=== PATIENT | male | born 1990 | race Hispanic/Latino ===

== ENCOUNTER 2017-12-02 15:06 | Emergency (ER) | payer SELFPAY ==
[2017-12-02] MEDS ORDERED: hydrOXYzine 25 MG TAB ONE (16:44)
== END 2017-12-02 17:09 | disposition home or self-care (01) ==
LOC: ERS 15:06
DX: F41.9 Anxiety disorder, unspecified (principal); F17.210 Nicotine dependence, cigarettes, uncomplicated
CPT/HCPCS: 99283

== ENCOUNTER 2018-08-21 06:48 | Emergency (ER) | payer SELFPAY | END 2018-08-21 07:18 | disposition home or self-care (01) | LOC: ERS 06:48 | DX: F41.1 Generalized anxiety disorder (principal); F17.210 Nicotine dependence, cigarettes, uncomplicated; Z79.899 Other long term (current) drug therapy | CPT/HCPCS: 99283 ==

== ENCOUNTER 2018-11-17 01:22 | Emergency (ER) | payer SELFPAY ==
[2018-11-17] MEDS ORDERED: Lidocaine 1% w/Epinephrine 1:100K 20 ML VIAL ONE (01:30)
[2018-11-17] MEDS ORDERED: CEFAZOLIN 1 GM VIAL ONE (01:30)
[2018-11-17] MEDS ORDERED: Adacel (T-DAP) 0.5 ML SYRINGE ONE (01:31)
[2018-11-17 01:39] LABS: #Basophils 0.1 thou/uL (0.0-0.2); #Eosinphils 0.1 thou/uL (0.0-0.7); #Lymphocytes 4.8 thou/uL (1.20-3.40); #Monocytes 0.6 thou/uL (0.11-0.59); #Neutrophils 5.7 thou/uL (1.40-6.50); %Basophils 1.2 % (0.0-1.0); %Eosinophils 1.2 % (0.0-10.0); %Lymphocytes 42.3 % (21.0-51.0); %Monocytes 5.2 % (0.0-10.0); %Neutrophils 50.2 % (42.0-75.0); Hemoglobin 16.1 g/dL (14.0-18.0); Mean Corpuscular HGB CONC 36.3 g/dL (32.0-36.0); Mean Corpuscular Hemoglobin 33.7 pg (27.0-31.0); Mean Corpuscular Volume 92.9 fL (78.0-98.0); Mean Platelet Volume 6.6 fL (7.4-10.4); Platelet Count 375 thou/uL (130-400); RBC Distribution Width 11.1 % (11.5-14.5); Red Blood Cell (RBC) Count 4.78 mill/uL (4.70-6.10); White Blood Cell (WBC) Count 11.4 thou/uL (4.8-10.8)
[2018-11-17 01:58] LABS: ALT (SGPT) 51 U/L (8-55); AST (SGOT) 33 U/L (5-34); Albumin 4.9 g/dL (3.5-5.0); Alkaline Phosphatase 109 U/L (40-150); Anion Gap 20 mmol/L (10-20); BUN (Urea Nitrogen) 11 mg/dL (8.9-20.6); Bilirubin, Total 0.7 mg/dL (0.2-1.2); Calc. Creatinine Clearance 0 mL/min (70-130); Calcium 9.9 mg/dL (7.8-10.44); Carbon Dioxide 16 mmol/L (22-29); Chloride 106 mmol/L (98-107); Estimated GFR-MDRD Greater than 90; Globulin 3.9 g/dL (2.4-3.5); Glucose 103 mg/dL (70-105); Potassium 3.8 mmol/L (3.5-5.1); Protein, Total 8.8 g/dL (6.0-8.3); Sodium 138 mmol/L (136-145)
--- NOTE | 2018-11-17 07:40 | RAD ---
Left forearm 2 views HISTORY: Left arm injury. FINDINGS: Radius and ulna are intact. Soft tissue gas of the distal forearm consistent with laceratio n. No acute fracture, dislocation, or radiopaque foreign bodies are apparent.
--- NOTE | 2018-11-17 07:41 | RAD ---
Left hand 3 views HISTORY: Left hand injury. FINDINGS: Joint spaces are preserved. Ulnar negative variant. No acute fracture, dislocation, or radi opaque foreign bodies are apparent. IMPRESSION: No acute osseous abnormalities are demonstrated.
== END 2018-11-17 02:33 | disposition home or self-care (01) ==
LOC: ERS 01:22
DX: S61.215A Laceration without foreign body of left ring finger without damage to nail, initial encounter (principal); S61.217A Laceration without foreign body of left little finger without damage to nail, initial encounter; S56.222A Laceration of other flexor muscle, fascia and tendon at forearm level, left arm, initial encounter; F41.9 Anxiety disorder, unspecified; F17.210 Nicotine dependence, cigarettes, uncomplicated; Z79.899 Other long term (current) drug therapy; Z71.6 Tobacco abuse counseling; W25.XXXA Contact with sharp glass, initial encounter
CPT/HCPCS: 12004; 80053; 85025; 90471; 90715; 96365; 99406; J0690; J2001

== ENCOUNTER 2019-01-29 06:07 | Emergency (ER) | payer SELFPAY ==
[2019-01-29] MEDS ORDERED: Bacitracin 1 PK ONE (06:35)
== END 2019-01-29 06:45 | disposition home or self-care (01) ==
LOC: ERS 06:07
DX: S61.012A Laceration without foreign body of left thumb without damage to nail, initial encounter (principal); F41.9 Anxiety disorder, unspecified; F17.210 Nicotine dependence, cigarettes, uncomplicated; W26.8XXA Contact with other sharp object(s), not elsewhere classified, initial encounter
CPT/HCPCS: 12001

== ENCOUNTER 2019-04-10 13:47 | Emergency (ER) | payer SELFPAY ==
[2019-04-10 14:28] LABS: #Basophils 0.1 thou/uL (0.0-0.2); #Eosinphils 0.2 thou/uL (0.0-0.7); #Lymphocytes 3.7 thou/uL (1.20-3.40); #Monocytes 0.5 thou/uL (0.11-0.59); #Neutrophils 4.2 thou/uL (1.40-6.50); %Basophils 1.2 % (0.0-1.0); %Eosinophils 1.9 % (0.0-10.0); %Lymphocytes 42.8 % (21.0-51.0); %Monocytes 5.8 % (0.0-10.0); %Neutrophils 48.4 % (42.0-75.0); Hemoglobin 17.4 g/dL (14.0-18.0); Mean Corpuscular HGB CONC 37.6 g/dL (32.0-36.0); Mean Corpuscular Hemoglobin 33.9 pg (27.0-31.0); Mean Corpuscular Volume 90.2 fL (78.0-98.0); Mean Platelet Volume 6.7 fL (7.4-10.4); Platelet Count 335 thou/uL (130-400); RBC Distribution Width 11.2 % (11.5-14.5); Red Blood Cell (RBC) Count 5.13 mill/uL (4.70-6.10); White Blood Cell (WBC) Count 8.6 thou/uL (4.8-10.8)
--- NOTE | 2019-04-10 14:32 | RAD ---
CHEST 1 VIEW: Date: 04/10/19 HISTORY: Dizziness. Diaphoretic. Shortness of breath. Chest pressure. COMPARISON: 02/05/09. FINDINGS: Heart size is within normal limits. Lungs are clear. IMPRESSION: No significant acute intrathoracic disease. POS: [facility]
[2019-04-10 14:45] LABS: ALT (SGPT) 51 U/L (8-55); AST (SGOT) 29 U/L (5-34); Alkaline Phosphatase 113 U/L (40-110); Anion Gap 15 mmol/L (10-20); BUN (Urea Nitrogen) 11 mg/dL (8.9-20.6); Bilirubin, Total 1.3 mg/dL (0.2-1.2); Calc. Creatinine Clearance 0 mL/min (70-130); Calcium 10.7 mg/dL (7.8-10.44); Carbon Dioxide 22 mmol/L (22-29); Chloride 103 mmol/L (98-107); Estimated GFR-MDRD 90; Globulin 4.1 g/dL (2.4-3.5); Glucose 95 mg/dL (70-105); Lipase 28 U/L (8-78); Protein, Total 9.1 g/dL (6.0-8.3); Sodium 136 mmol/L (136-145)
[2019-04-10] MEDS ORDERED: hydrOXYzine 25 MG TAB ONE (15:41)
[2019-04-10] MEDS ORDERED: Acetaminophen 500 MG TAB ONE (15:41)
[2019-04-10] MEDS ORDERED: Ibuprofen 800 MG TAB ONE (17:36)
== END 2019-04-10 17:44 | disposition home or self-care (01) ==
LOC: ERS 13:47
DX: I10 Essential (primary) hypertension (principal); F41.9 Anxiety disorder, unspecified; F17.210 Nicotine dependence, cigarettes, uncomplicated; Z91.19 Patient's noncompliance with other medical treatment and regimen
CPT/HCPCS: 36415; 71045; 80053; 83690; 84484; 85025; 93005

== ENCOUNTER 2019-05-12 10:16 | Emergency (ER) | payer SELFPAY ==
[2019-05-12] MEDS ORDERED: Ketorolac Tromethamine 30 MG/ML VIAL ONE (10:58)
[2019-05-12] MEDS ORDERED: Acetaminophen 500 MG TAB ONE (10:58)
== END 2019-05-12 11:15 | disposition home or self-care (01) ==
LOC: ERS 10:16
DX: K05.10 Chronic gingivitis, plaque induced (principal); K02.9 Dental caries, unspecified; I10 Essential (primary) hypertension; F41.9 Anxiety disorder, unspecified; F17.210 Nicotine dependence, cigarettes, uncomplicated; Z79.899 Other long term (current) drug therapy
CPT/HCPCS: 96372; 99282; J1885

== ENCOUNTER 2021-03-19 15:21 | Emergency (ER) | payer SELFPAY ==
[2021-03-19] MEDS ORDERED: Dexamethasone 4 mg/ml Vial ONE (16:32)
== END 2021-03-19 16:40 | disposition home or self-care (01) ==
LOC: ERS 15:21
DX: L25.9 Unspecified contact dermatitis, unspecified cause (principal); I10 Essential (primary) hypertension; Z79.899 Other long term (current) drug therapy
CPT/HCPCS: 99282; J1100

== ENCOUNTER 2022-10-12 15:54 | Emergency (ER) | payer SELFPAY ==
[2022-10-12] MEDS ORDERED: Ketorolac Tromethamine 30 MG/ML VIAL ONE (17:48)
== END 2022-10-12 17:55 | disposition home or self-care (01) ==
LOC: ERS 15:54
DX: M79.671 Pain in right foot (principal)
CPT/HCPCS: J1885

== ENCOUNTER 2023-04-15 20:50 | Emergency (ER) | payer SELFPAY ==
[2023-04-15] MEDS ORDERED: Ketorolac Tromethamine 30 MG/ML VIAL ONE (21:32)
[2023-04-15] MEDS ORDERED: Lidocaine 1% PF 5 ML VIAL ONE (21:38)
== END 2023-04-15 22:50 | disposition home or self-care (01) ==
LOC: ERS 20:50
DX: K08.89 Other specified disorders of teeth and supporting structures (principal); I10 Essential (primary) hypertension; F17.210 Nicotine dependence, cigarettes, uncomplicated; Z79.899 Other long term (current) drug therapy
CPT/HCPCS: 64450; 96372; J1885

== ENCOUNTER 2023-07-16 17:44 | Emergency (ER) | payer SELFPAY ==
[2023-07-16 20:06] LABS: #Basophils 0.1 thou/uL (0.0-0.2); #Eosinphils 0.1 thou/uL (0.0-0.7); #Monocytes 0.8 thou/uL (0.11-0.59); #Neutrophils 8.6 thou/uL (1.40-6.50); %Basophils 0.6 % (0.0-1.0); %Eosinophils 0.4 % (0.0-10.0); %Lymphocytes 17.6 % (21.0-51.0); %Neutrophils 74.1 % (42.0-75.0); Hematocrit 42.8 % (42.0-52.0); Hemoglobin 15.4 g/dL (14.0-18.0); Mean Corpuscular Volume 91.6 fl (78.0-98.0); Mean Platelet Volume 8.8 fL (7.4-10.4); Platelet Count 302 10x3/uL (130-400); RBC Distribution Width 11.9 % (11.5-14.5); Red Blood Cell (RBC) Count 4.67 mill/uL (4.70-6.10); White Blood Cell (WBC) Count 11.6 10x3/uL (4.8-10.8)
[2023-07-16 20:29] LABS: Albumin 4.7 g/dL (3.5-5.0)
[2023-07-16 20:30] LABS: Chloride 101 mmol/L (98-107); Potassium 3.2 mmol/L (3.5-5.1); Sodium 135 mmol/L (136-145)
[2023-07-16 20:31] LABS: Calcium 9.3 mg/dL (7.8-10.44)
[2023-07-16 20:32] LABS: Globulin 3.5 g/dL (2.4-3.5); Glucose 87 mg/dL (70-105); Protein, Total 8.2 g/dL (6.0-8.3)
[2023-07-16 20:33] LABS: Anion Gap 14 mmol/L (10-20); Carbon Dioxide 23 mmol/L (22-29)
[2023-07-16 20:34] LABS: Bilirubin, Total 1.3 mg/dL (0.2-1.2)
[2023-07-16 20:35] LABS: Alkaline Phosphatase 94 U/L (40-110); Calc. Creatinine Clearance 0 mL/min (70-130); Estimated GFR 119
[2023-07-16 20:36] LABS: BUN (Urea Nitrogen) 11 mg/dL (8.9-20.6)
[2023-07-16 20:37] LABS: AST (SGOT) 17 U/L (5-34)
[2023-07-16 20:38] LABS: ALT (SGPT) 18 U/L (8-55)
== END 2023-07-16 20:54 | disposition home or self-care (01) ==
LOC: ERS 17:44
DX: R29.0 Tetany (principal); I10 Essential (primary) hypertension; F17.210 Nicotine dependence, cigarettes, uncomplicated; F17.290 Nicotine dependence, other tobacco product, uncomplicated
CPT/HCPCS: 36415; 80053; 85025; 99284

== ENCOUNTER 2023-08-18 14:30 | Emergency (ER) | payer SELFPAY ==
[2023-08-18 15:26] LABS: #Basophils 0.1 thou/uL (0.0-0.2); #Eosinphils 0.1 thou/uL (0.0-0.7); #Monocytes 0.4 thou/uL (0.11-0.59); #Neutrophils 3.6 thou/uL (1.40-6.50); %Basophils 0.8 % (0.0-1.0); %Eosinophils 1.7 % (0.0-10.0); %Lymphocytes 35.9 % (21.0-51.0); %Monocytes 6.7 % (0.0-10.0); %Neutrophils 54.3 % (42.0-75.0); Hematocrit 39.6 % (42.0-52.0); Hemoglobin 14.3 g/dL (14.0-18.0); Mean Corpuscular HGB CONC 36.1 g/dL (32.0-36.0); Mean Corpuscular Hemoglobin 33.6 pg (27.0-31.0); Mean Corpuscular Volume 93.2 fl (78.0-98.0); Mean Platelet Volume 8.8 fL (7.4-10.4); Platelet Count 277 10x3/uL (130-400); RBC Distribution Width 11.5 % (11.5-14.5); Red Blood Cell (RBC) Count 4.25 mill/uL (4.70-6.10); White Blood Cell (WBC) Count 6.6 10x3/uL (4.8-10.8)
[2023-08-18 15:52] LABS: Troponin I Less than 0.010 ng/mL (< 0.028)
[2023-08-18] MEDS ORDERED: Ondansetron PF 4 MG/2 ML Vial ONE (15:52)
[2023-08-18 15:55] LABS: ALT (SGPT) 18 U/L (8-55); AST (SGOT) 18 U/L (5-34); Albumin 4.5 g/dL (3.5-5.0); Alkaline Phosphatase 99 U/L (40-110); Anion Gap 16 mmol/L (10-20); BUN (Urea Nitrogen) 11 mg/dL (8.9-20.6); Bilirubin, Total 0.9 mg/dL (0.2-1.2); Calc. Creatinine Clearance 0 mL/min (70-130); Calcium 9.1 mg/dL (7.8-10.44); Carbon Dioxide 20 mmol/L (22-29); Chloride 104 mmol/L (98-107); Estimated GFR 118; Globulin 3.4 g/dL (2.4-3.5); Glucose 67 mg/dL (70-105); Magnesium 1.9 mg/dL (1.6-2.6); Potassium 3.8 mmol/L (3.5-5.1); Protein, Total 7.9 g/dL (6.0-8.3); Sodium 136 mmol/L (136-145)
[2023-08-18 16:21] LABS: SARS-CoV-2 NAA Rapid Test Not Detected (NotDetected)
== END 2023-08-18 17:15 | disposition home or self-care (01) ==
LOC: ERS 14:30
DX: B34.9 Viral infection, unspecified (principal); I10 Essential (primary) hypertension; F17.210 Nicotine dependence, cigarettes, uncomplicated; F17.290 Nicotine dependence, other tobacco product, uncomplicated; Z79.899 Other long term (current) drug therapy
CPT/HCPCS: 36415; 71045; 80053; 83735; 83880; 84484; 85025; 93005; 96374; J2405

== ENCOUNTER 2024-01-23 21:08 | Emergency (ER) | payer SELFPAY ==
[2024-01-23] MEDS ORDERED: Dexamethasone 10 MG/ML VIAL ONE (21:31)
== END 2024-01-23 21:32 | disposition home or self-care (01) ==
LOC: ERS 21:08
DX: H10.13 Acute atopic conjunctivitis, bilateral (principal); I10 Essential (primary) hypertension; F17.210 Nicotine dependence, cigarettes, uncomplicated; F17.290 Nicotine dependence, other tobacco product, uncomplicated
CPT/HCPCS: 99283; J1100